=== PATIENT | female | born 1990 | race Two or more races ===

== ENCOUNTER 2024-05-03 13:16 | Emergency (ER) | payer OTHER ==
[~2024-05-03] VITALS: Ht 157.5 cm; Wt 108.0 kg
[2024-05-03] MEDS ORDERED: FAMOtidine 10 MG/ML (4ML VIAL) IV ONE (14:15)
[2024-05-03] MEDS ORDERED: CEFTRIAXONE SODIUM 1,000 MG VIAL IV ONE (14:15)
[2024-05-03] MEDS ORDERED: ONDANSETRON HCL 2 MG/ML VIAL IV ONE (14:15)
[2024-05-03] MEDS ORDERED: KETOROLAC TROMETHAMINE 60 MG VIAL IM ONE (14:15)
[2024-05-03] MEDS ORDERED: TAMSULOSIN HCL 0.4 MG CAP PO ONE (14:15)
[2024-05-03] MEDS ORDERED: 0.9 % SODIUM CHLORIDE 1,000 ML IV ONE (14:30)
[2024-05-03 15:49] LABS: HEMATOCRIT 37.3 % (36.0-45.00); HEMOGLOBIN 12.1 g/dL (12.0-15.00); MEAN CELL VOLUME 72.6 fL (80.00-100.00); MEAN CORPUSCULAR HEMOGLOBIN 23.5 pg (27.00-32.0); MEAN CORPUSCULAR HGB CONC 32.4 g/dl (32.0-36.0); PLATELET COUNT 374 K/uL (150-450); RED BLOOD COUNT 5.14 M/uL (4.00-6.00)
[2024-05-03 16:30] LABS: ALBUMIN 3.8 gm/dL (3.4-5.0); ALKALINE PHOSPHATASE 95 U/L (50-136); ALT/SGPT 17 U/L (12-78); ANION GAP 11 (10.0-20.0); AST/SGOT 11 U/L (15-37); BILIRUBIN TOTAL 0.25 mg/dL (0.3-1.2); BLOOD UREA NITROGEN 12 mg/dL (7-18); BUN CREA RATIO 15 (7.0-25.0); CALCIUM 8.9 mg/dL (8.5-10.1); CARBON DIOXIDE 26 mEq/L (21-32); CHLORIDE 107 mmol/L (98-107); CREATININE SERUM 0.79 mg/dL (0.55-1.02); GFR 84.88; GLOBULINA 3.8 G/DL (2.4-3.5); GLUCOSE FASTING 91 mg/dL (65-100); OSMOLALITY SERUM 279 MOSM/KG (275-295); POTASSIUM 4.29 mEq/L (3.5-5.1); SODIUM 140 mmol/L (136-145); TOTAL PROTEIN 7.6 gm/dL (6.4-8.2)
[2024-05-03 16:47] LABS: URINE APPEARANCE Clear; URINE BILIRRUBIN Negative (NEGATIVE); URINE BLOOD Small; URINE COLOR Yellow; URINE GLUCOSE Negative (NEGATIVE); URINE KETONE Negative (NEGATIVE); URINE LEUKOCYTE Negative; URINE NITRATE Negative; URINE PROTEIN Negative (NEGATIVE); URINE UROBILINOGEN 0.2 E.U./dl
[2024-05-03 16:50] LABS: HCG QUANTITATIVE < 1 mUI/mL (1-3)
[2024-05-03 16:53] LABS: URINE BACTERIA 27.7 uL (0.0-1933); URINE RBC 215.4 uL (0.0-20.8)
[2024-05-03 17:22] LABS: URINE EPITHELIAL CELLS 1.3 uL (0.0-38.8); URINE WBC 1.5 uL (0.0-23.2)
== END 2024-05-03 20:32 | disposition home or self-care (01) ==
LOC: ER 13:18
PROVIDERS: General Practice
DX: R10.31 Right lower quadrant pain (principal); R16.0 Hepatomegaly, not elsewhere classified